=== PATIENT | male | born 1995 | race Caucasian/White ===

== ENCOUNTER 2020-05-25 06:57 | Outpatient (NON) | payer OTHER, SELFPAY ==
[2020-05-25 23:33] LABS: SARS-CoV-2 RNA PCR Positive
== END 2020-05-25 06:58 ==
LOC: ANHCOVIDDT 07:18
PROVIDERS: PCP Internal Medicine; Visit Provider Internal Medicine
DX: U07.1 COVID-19 (principal)
CPT/HCPCS: 87635; C9803; U0003

== ENCOUNTER 2020-11-16 01:09 | Emergency (ER) | payer OTHER, SELFPAY ==
--- NOTE | ~2020-11-16 | XR_ITS ---
EXAMINATION: XR chest 2V DATE: 11/16/2020 03:33 INDICATION: Palpitations TECHNIQUE: PA and lateral views of the chest were obtained. COMPARISON: None FINDINGS: The lungs are clear with no focal airspace opacities, pulmonary edema, pleural effusion or pneumothor ax. The cardiomediastinal silhouette is normal. Mild lower thoracic levocurvature with mild spondylos is. IMPRESSION: 1. No acute cardiopulmonary disease. Reviewed, dictated and finalized at location A.
--- NOTE | 2020-11-16 01:12 | ECG_ITS ---
Measurements Intervals [place] Rate: 69 P: 84 [place]: 133 QRS: 16 QRSD: 107 T: 0 QT: 369 QTc: 396 Interpretive Statements SINUS RHYTHM WITH SINUS ARRHYTHMIA INCOMPLETE RIGHT BUNDLE BRANCH BLOCK LEFT VENTRICULAR HYPERTROPHY WITH ST-T CHANGE LOW QRS VOLTAGE IN PRECORDIAL LEADS MINIMAL Q WAVES- HIGH LATERAL LEADS BORDERLINE ECG Electronically Signed On 11-16-2020 14:05:13 CDT by Rich Taylor D.O.
[2020-11-16 01:19] VITALS: BP 172/94; PULSE 69; RESP 16; TEMP 36.7; O2SAT 100
[2020-11-16 02:55] VITALS: BP 143/86; PULSE 66; RESP 14; O2SAT 100
--- NOTE | 2020-11-16 03:27 | ED.CHESTPAIN ---
HPI - Chest Pain General Chief Complaint: Chest Pain Stated Complaint: palpitation Time Seen by Provider: 11/16/20 02:45 History of Present Illness HPI narrative: Patient is a 25-year-old male who presents ER with palpitations and chest tightness. Began around midnight. Went up into his shoulders. Lasted for about 30 minutes. No nausea/vomiting/sweats. No exertional chest pain. Resolved on its own. Not exacerbated by anything. Denies excessive use of caffeine. Has not use any marijuana or edibles. Reports he has had history of palpitations in the past and has been started amlodipine but has never had a stress test or Holter monitor. Related Data Allergies Allergy/AdvReac Type Severity Reaction Status Date / Time No Known Allergies Allergy Verified 11/16/20 01:24 Review of Systems Review of Systems: All systems reviewed & are unremarkable except as noted in HPI and below Constitutional: Constitutional: Denies chills, Denies fever(s) and Denies weakness Cardiovascular: Cardiovascular: Reports chest pain, Reports rapid heart rate and Denies radiating jaw, neck or arm pain Respiratory: Respiratory: Denies cough, Reports dyspnea and Denies wheezing Gastrointestinal: Gastrointestinal: Denies nausea and Denies vomiting PMFSH Past Medical History Medical History (Updated 11/16/20 @ 04:27 by Nii Musa MD) Allergic rhinitis Exposure to sexually transmitted disease (STD) Surgical History Surgical History Hx of tonsillectomy Family History Family History Mother Patient's mother is in good health Father Patient's father is in good health Sibling Patient's sister is in good health Social History Social History Smoking status: Never smoker Alcohol intake: current Exam Narrative: Exam Narrative: GENERAL: Well-appearing, well-nourished, and in no acute distress. HEAD: Normocephalic, atraumatic. CHEST: Clear to auscultation. No respiratory distress. HEART: Regular rate and rhythm. Normal peripheral pulses. ABDOMEN: Soft, nontender, nondistended. EXTREMITIES: Normal range of motion. No edema. SKIN: Warm, dry, no rash. NEURO: Alert and oriented x3. PSYCH: Normal mood and affect. Course Course Emergency Course: Patient resting comfortably and informed of results. TSH pending but PCP can follow that up. Recommend outpatient Holter monitor. Discharge. Vital Signs Vital signs: Vital Signs Temperature 98.1 F 11/16/20 01:19 Pulse Rate 69 11/16/20 01:19 Respiratory Rate 16 11/16/20 01:19 Blood Pressure 172/94 H 11/16/20 01:19 Pulse Oximetry 100 11/16/20 01:19 Temperature 98.1 F 11/16/20 01:19 Pulse Rate 99 11/16/20 04:05 Respiratory Rate 16 11/16/20 04:05 Blood Pressure 136/78 11/16/20 04:05 Pulse Oximetry 99 11/16/20 04:05 MDM - Chest Pain Lab Data Result diagrams: 11/16/20 03:29 11/16/20 03:29 Labs: Lab Results 11/16/20 11/16/20 11/16/20 Range/Units 03:29 03:29 03:29 WBC 9.2 (4.5-10.0) K/mm3 RBC 4.56 L (4.6-6.20) M/mm3 Hgb 13.9 L (14.0-18.0) g/dL Hct 40.9 L (42.0-52.0) % MCV 89.7 (80-100) fl MCH 30.5 (26-34) pg MCHC 34.0 (32-36) g/dl RDW 11.4 L (11.5-14.5) % Plt Count 235 (150-375) k/mm3 MPV 8.9 (7.4-10.4) fl Immature Gran % (Auto) 0.3 (0-0.5) % Neut % (Auto) 56.2 (45.5-73.1) % Lymph % (Auto) 33.1 (18.3-44.2) % [place] % (Auto) 7.4 (2.6-8.5) % Eos % (Auto) 2.5 (0-4.4) % Baso % (Auto) 0.5 (0.2-1.2) % Lymph # (Auto) 3.04 (0.9-3.2) K/mm3 Taney # (Auto) 0.7 H (0.1-0.6) K/mm3 Eos # (Auto) 0.2 (0-0.3) K/mm3 Baso # (Auto) 0.1 (0.0-0.1) K/mm3 Abs Immat Gran (auto) 0.03 (0.00-0.031) K/mm3 Absolute Neuts (auto) 5.2 (1.3-6.7) K/mm3 Absolute Nucleated RBC 0.0 (0.0-0.012)
--- NOTE | 2020-11-16 03:31 | PC.NURSE ---
Pt to [facility] via stretcher at this time.
[2020-11-16 03:43] LABS: Basophils Absolute Auto 0.1 K/mm3 (0.0-0.1); Basophils Percent Auto 0.5 % (0.2-1.2); Eosinophils Absolute Auto 0.2 K/mm3 (0-0.3); Eosinophils Percent Auto 2.5 % (0-4.4); Hematocrit 40.9 % (42.0-52.0); Hemoglobin 13.9 g/dL (14.0-18.0); Immature Granulocyte Absolute 0.03 K/mm3 (0.00-0.031); Immature Granulocyte Percent A 0.3 % (0-0.5); Lymphocytes Absolute Auto 3.04 K/mm3 (0.9-3.2); Lymphocytes Percent Auto 33.1 % (18.3-44.2); Mean Corpuscular Hemoglobin 30.5 pg (26-34); Mean Corpuscular Volume 89.7 fl (80-100); Mean Platelet Volume 8.9 fl (7.4-10.4); Monocytes Absolute Auto 0.7 K/mm3 (0.1-0.6); Monocytes Percent Auto 7.4 % (2.6-8.5); Neutrophils Absolute Auto 5.2 K/mm3 (1.3-6.7); Neutrophils Percent Auto 56.2 % (45.5-73.1); Platelet Count Result 235 k/mm3 (150-375); Red Blood Count 4.56 M/mm3 (4.6-6.20); Red Cell Distribution Width 11.4 % (11.5-14.5); White Blood Count 9.2 K/mm3 (4.5-10.0)
[2020-11-16 03:45] LABS: Anion Gap 8 mmol/L (8-16); Blood Urea Nitrogen 15 mg/dL (9-20); Calcium 9.1 mg/dL (8.4-10.2); Carbon Dioxide 27 mmol/L (22-30); Chloride 104 mmol/L (98-107); Estimated CRCL calculation 136 ml/min; Estimated Glomerular Filt Rate > 60; Glucose 106 mg/dL (75-110); Sodium 139 mmol/L (137-145)
[2020-11-16 03:47] LABS: INR 0.9; Prothrombin Time 12.8 Seconds (11.1-14.7)
[2020-11-16 03:50] LABS: Partial Thromboplastin Time 29.8 SECONDS (22.3-36.8)
[2020-11-16 03:57] LABS: Troponin I < 0.012 ng/mL (0.000-0.034)
[2020-11-16 04:05] VITALS: BP 136/78; PULSE 99; RESP 16; O2SAT 99
[2020-11-16 04:49] VITALS: BP 137/89; PULSE 68; RESP 20; O2SAT 100
[2020-11-16 05:17] LABS: Free T4 Free Thyroxine Reflex 0.98 ng/dL (0.78-2.19)
[2020-11-16 05:59] LABS: Total Triiodothyronine (T3) 1.49 NG/ML (0.97-1.69)
== END 2020-11-16 04:49 | disposition home or self-care (01) ==
PROVIDERS: Emergency Provider Emergency Medicine; PCP Internal Medicine
DX: R00.2 Palpitations (principal)
CPT/HCPCS: 36415; 71046; 80048; 84439; 84443; 84480; 84484; 85025; 85610; 85730; 93005; 99284

== ENCOUNTER 2020-11-22 15:49 | Emergency (ER) | payer OTHER, SELFPAY ==
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
[2020-11-22 16:00] VITALS: BP 141/88; PULSE 92; RESP 16; TEMP 36.9; O2SAT 100
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
== END 2020-11-22 16:55 | disposition home or self-care (01) ==
PROVIDERS: Emergency Provider Nurse Practitioner; PCP Internal Medicine
DX: L01.00 Impetigo, unspecified (principal); S80.811A Abrasion, right lower leg, initial encounter; S60.410A Abrasion of right index finger, initial encounter; V28.4XXA Motorcycle driver injured in noncollision transport accident in traffic accident, initial encounter
CPT/HCPCS: 73130; 99213; G0463

== ENCOUNTER 2021-03-01 14:02 | Outpatient (CLI) | payer OTHER, SELFPAY ==
--- NOTE | 2021-03-04 16:32 | P.PCNHOL_ITS ---
Holter/Event Monitor Holter/Event Monitor Date of procedure: 03/01/21 Holter/Event Procedure: 48 Hr Holter Monitor Indications: Palpitations Conclusion: 1. 48 hour holter monitor on 03/01/21. 2. Underlying rhythm is sinus rhythm. HR range 54-167 bpm; average HR 94 bpm. 3. No premature supraventricular complexes. No supraventricular tachycardia. 4. There are 1 premature ventricular complex and 2 ventricular couplets. No ventricular tachycarda. 5. No sinoatrial or atrioventricular blocks. No significant pauses greater than 2 seconds. 6. Patient reports symptoms of heart beating hard which demonstrate sinus rhythm , HR range 99-112 bpm.
== END 2021-03-01 14:03 | disposition home or self-care (01) ==
LOC: ANHCARD 14:06
PROVIDERS: PCP Internal Medicine; Visit Provider Internal Medicine
DX: R00.2 Palpitations (principal)
CPT/HCPCS: 93225; 93226

== ENCOUNTER 2022-05-12 11:00 | Emergency (ER) | payer OTHER, SELFPAY ==
[2022-05-12 11:51] VITALS: BP 116/76; PULSE 134; RESP 16; TEMP 38.5; O2SAT 98
--- NOTE | 2022-05-12 12:45 | ED.FEVER ---
HPI - Fever General Chief Complaint: Fever Stated Complaint: high fever,flu symptoms Time Seen by Provider: 05/12/22 12:46 Source: patient and RN notes reviewed Mode of arrival: ambulatory Limitations: no limitations History of Present Illness HPI Narrative: 18-year-old male presents concern for 3 day history of cough congestion, body aches, fever. Reports taking Tylenol without relief. Reports he has taken a Coricidin HBP. MD elicited complaint: fever Related Data Allergies Allergy/AdvReac Type Severity Reaction Status Date / Time No Known Allergies Allergy Verified 05/12/22 12:17 Review of Systems Review of Systems: CONSTITUTIONAL: Reports malaise, chills, sweats, fever. EYES: Denies visual changes, redness, or discharge. ENT: Reports rhinorrhea, congestion. Sinus pain, otalgia and sore throat. CARDIOVASCULAR: Denies chest pain, palpitations, or edema. RESPIRATORY: Reports cough. Denies dyspnea. GASTROINTESTINAL: Denies abdominal pain, nausea, vomiting, diarrhea SKIN: Denies rash or itching. MUSCULOSKELETAL: Reports myalgia. NEUROLOGIC: Denies headache. All systems reviewed & are unremarkable except as noted in HPI and below PMFSH Past Medical History Medical History Allergic rhinitis Exposure to sexually transmitted disease (STD) Surgical History Surgical History Hx of tonsillectomy Family History Family History Mother Patient's mother is in good health Father Patient's father is in good health Sibling Patient's sister is in good health Social History Social History (Updated 04/28/22 @ 10:19 by Nanette Dangelo CMA) Smoking status: Former smoker Tobacco type: cigarettes Smoking end date: 11/17/19 Alcohol intake: current Alcohol use details: occasionally Substance use: never Lack of Transportation: No Lack of Food: Never True Current Housing: I Have Housing Concerned About Future Housing: No Difficulty Paying Gas/Electric Bills: No Difficulty Paying for Meds: No Education: Associate Degree Difficulty w/ Childcare or Family Care: No Gender identity (if verbalized by the patient): Male Comments At time of signature, agree with nursing past medical, surgical, social and family history. There is no relevant family history pertinent to the presenting complaint Exam Narrative: GENERAL: Well-appearing, well-nourished, and in no acute distress. HEAD: Normocephalic EYES: PERRLA, conjunctivae clear ENT: Nares clear, turbinates edematous and erythematous, clear discharge. Mucous membranes moist. TM pearly schreiber with sharp light reflex bilaterally; no tragal tenderness. Oropharynx not erythematous without lesions. Tonsils not enlarged and without exudate, no drooling, no hoarseness, no trismus, uvula midline. NECK: Supple. No lymphadenopathy CHEST: Clear to auscultation, breath sounds equal. No wheezing, rhonchi, rales, or stridor. No respiratory distress, speaks in full sentences. HEART: Regular rate and rhythm. No murmur heard. SKIN: Warm, dry, no rash. NEURO: Alert and oriented x3. PSYCH: Normal mood and affect Course Course Emergency Course: Patient is aware of diagnosis, understands and agrees to treatment plan. Anticipatory guidance given. Patient agrees to follow-up as directed and is aware of reasons to seek care at the emergency department. Portions of this record may have been created with voice recognition software Level of Care: Express Care Visit Vital Signs Vital signs: Vital Signs Temperature 101.3 F H 05/12/22 11:51 Pulse Rate 134 H 05/12/22 11:51 Respiratory Rate 16 05/12/22 11:51 Blood Pressure 116/76 05/12/22 11:51 Pulse Oximetry 98 05/12/22 11:51 Temperature 101.3 F H 05/12/22 11:51 Pulse Rate 134 H 05/12/22 11:51 Respiratory Rate 16 05/12/22 11:5
== END 2022-05-12 13:00 | disposition home or self-care (01) ==
PROVIDERS: Emergency Provider Nurse Practitioner; PCP Internal Medicine
DX: J10.1 Influenza due to other identified influenza virus with other respiratory manifestations (principal); Z87.891 Personal history of nicotine dependence
CPT/HCPCS: 87804; 99213; G0463